=== PATIENT | female | born 1935 | race African-American/Black ===

== ENCOUNTER 2017-01-31 00:09 | Inpatient (IN) | payer OTHER ==
[~2017-01-31] VITALS: Ht 162.6 cm; Wt 89.8 kg
[2017-01-31] MEDS ORDERED: AZITHROMYCIN 500 MG in DEXT 5% WATER 250 ML IV ONE (00:45)
[2017-01-31] MEDS ORDERED: CEFTRIAXONE 2 G PREMIX 50 ML IV ONE (00:45)
[2017-01-31 00:56] LABS: EOSINOPHILS % 0.1 % (0.0-5.0); HEMATOCRIT. 21.2 % (36.0-48.0); LYMPHOCYTES % 6.3 % (20.0-50.0); MEAN CORPUSCULAR HEMOGLOBIN 28.9 pg (28.0-32.0); MEAN CORPUSCULAR HGB CONC 33.3 g/dL (31.0-37.0); MEAN CORPUSCULAR VOLUME 86.7 fL (81.0-99.0); MEAN PLATELET VOLUME 9.5 fl (7.4-10.4); MONOCYTES % 6.8 % (2.0-8.0); NEUTROPHILS % 86.8 % (40.0-76.0); PLATELET 195 x1000/uL (130-400); RED BLOOD CELL COUNT 2.44 mill/uL (4.2-5.4); RED CELL DISTRIBUTION WIDTH 13.7 % (11.6-14.6); WHITE BLOOD COUNT 10.8 x1000/uL (4.5-11.0)
[2017-01-31 01:03] LABS: INR 1.1; PROTHROMBIN TIME 11.4 sec
[2017-01-31 01:12] LABS: ALANINE AMINOTRANSFERASE 36 IU/L (13-61); ALBUMIN 3.4 g/dL (3.4-5.0); ANION GAP 16; CALCIUM 8.4 mg/dL (8.5-10.1); CARBON DIOXIDE 24 mEq/L (21-32); CHLORIDE 102 mEq/L (98-107); DIFFERENTIAL COMMENT 1; INDEX HEMOLYSI 1 (1-3); INDEX ICTERIC 1 (1-4); INDEX LIPEMIC 1 (1-3); LIPASE 73 IU/L (73-393); TROPONIN I 0.32 ng/mL (0.00-0.04); UREA NITROGEN BLOOD 32 mg/dL (7-21); eGFR 52 mL/min (>60)
[2017-01-31 01:25] LABS: NT PRO B-TYPE NATRIURETIC PEP 24680 pg/mL (5-125)
[2017-01-31] MEDS ORDERED: DEXTROSE 50% WATER 50ML SYRINGE IV ONE ×4 (01:30→15:02)
[2017-01-31] MEDS ORDERED: FUROSEMIDE 40MG/4ML VIAL IVP ONE (05:15)
[2017-01-31] MEDS ORDERED: DIPHENHYDRAMINE 50MG/ML VIAL IV PRN (11:00)
[2017-01-31] MEDS ORDERED: MAGNESIUM/ALUMINUM HYDROXIDE/SIMETHICONE 30ML UDC PO PRN (11:00)
[2017-01-31] MEDS ORDERED: NITROGLYCERIN 0.4MG TABLET SL SL PRN (11:00)
[2017-01-31] MEDS ORDERED: IPRATROPIUM/ALBUTEROL 0.5-3(2.5)MG/3ML NEB INH PRN (11:00)
[2017-01-31] MEDS ORDERED: LORAZEPAM 2MG/ML CPJ IV PRN (11:00)
[2017-01-31] MEDS ORDERED: GUAIFENESIN 200MG/10ML SUGAR FREE UDC PO PRN (11:00)
[2017-01-31] MEDS ORDERED: MORPHINE SULFATE 2 MG/ML CPJ (NOT FOR IM USE) IV PRN (11:00)
[2017-01-31] MEDS ORDERED: NA PHOS,M-B/NA PHOS,DI-BA ENEMA 118ML PR PRN (11:00)
[2017-01-31] MEDS ORDERED: ZOLPIDEM TARTRATE 5MG TABLET PO PRN (11:00)
[2017-01-31] MEDS ORDERED: ONDANSETRON HCL 4MG/2ML VIAL IV PRN (11:00)
[2017-01-31] MEDS ORDERED: TRAMADOL 50MG TABLET PO PRN (11:00)
[2017-01-31] MEDS ORDERED: DEXTROSE 50% WATER 50ML SYRINGE IV PRN (11:00)
[2017-01-31 12:21] LABS: INDEX HEMOLYSI 1 (1-3)
[2017-01-31 12:36] LABS: VITAMIN B12 SERUM 431 pg/mL (211-911)
[2017-01-31 12:41] LABS: FOLIC ACID (FOLATE) SERUM > 20.00 ng/mL (>5.38)
[2017-01-31 13:00] VITALS: BP 159/89
[2017-01-31] MEDS: INSULIN LISPRO 100 UNITS/ML SUBCUT SCH ×3 (13:12→21:00)
[2017-01-31] MEDS ORDERED: HYDR25TA PO (13:45)
[2017-01-31] MEDS ORDERED: LOSA100T11 PO (13:45)
[2017-01-31] MEDS ORDERED: ASPI-867 PO (13:45)
[2017-01-31] MEDS ORDERED: LORA0.5T2 PO (13:45)
[2017-01-31] MEDS ORDERED: ATEN50TA PO (13:45)
[2017-01-31] MEDS ORDERED: QUET25TA PO (13:45)
[2017-01-31] MEDS ORDERED: ISOS60TA4 PO (13:45)
[2017-01-31] MEDS ORDERED: AMLO5TAB4 PO (13:45)
[2017-01-31] MEDS ORDERED: GLIP5TAB12 PO (13:45)
[2017-01-31] MEDS ORDERED: HYDR-4135 PO (13:45)
[2017-01-31] MEDS ORDERED: LOVA40TA73 PO (13:45)
[2017-01-31] MEDS ORDERED: POTASSIUM CHLORIDE 20MEQ TABLET SR PO NR ×2 (14:00→16:00)
[2017-01-31] MEDS: FUROSEMIDE 40MG/4ML VIAL IVP SCH (14:12)
[2017-01-31] MEDS: BLOOD SUGAR DIAGNOSTIC STRIP TEST SCH ×3 (14:43→21:00)
[2017-01-31] MEDS ORDERED: DEXTROSE 50% WATER 50ML SYRINGE IV NR (15:15)
[2017-01-31 16:00] VITALS: BP 193/77
[2017-01-31] MEDS: CLONIDINE 0.1MG TABLET PO PRN ×2 (16:16→22:53)
[2017-01-31 17:06] LABS: CREATINE KINASE MB FRACTION 4.6 ng/mL (0.5-3.6)
[2017-01-31 17:32] LABS: TROPONIN I 0.44 ng/mL (0.00-0.04)
[2017-01-31] MEDS ORDERED: DEXT 10% WATER 1,000 ML IV NR (18:15)
[2017-01-31] MEDS: LOSARTAN POTASSIUM 50 MG TABLET PO SCH (18:24)
[2017-01-31] MEDS: AMLODIPINE 2.5MG TABLET PO SCH (18:24)
[2017-01-31] MEDS ORDERED: LISINOPRIL 20MG TABLET PO SCH (21:00)
[2017-01-31] MEDS: PANTOPRAZOLE SODIUM 40 MG/VIAL IV SCH (21:11)
[2017-01-31] MEDS: SPIRONOLACTONE 25MG TABLET PO SCH (21:11)
[2017-01-31 22:15] VITALS: BP 136/63
[2017-01-31 22:42] VITALS: BP 161/68
[2017-01-31 23:30] VITALS: BP 158/65
[2017-02-01] VITALS (14 sets, daily range): BP systolic 145–193; BP diastolic 65–100
[2017-02-01] MEDS: FUROSEMIDE 40MG/4ML VIAL IVP SCH ×2 (04:24→08:39)
[2017-02-01] MEDS: BLOOD SUGAR DIAGNOSTIC STRIP TEST SCH ×3 (05:58→16:52)
[2017-02-01] MEDS: INSULIN LISPRO 100 UNITS/ML SUBCUT SCH ×3 (05:58→16:53)
[2017-02-01] MEDS: SPIRONOLACTONE 25MG TABLET PO SCH (08:38)
[2017-02-01] MEDS: PANTOPRAZOLE SODIUM 40 MG/VIAL IV SCH (08:39)
[2017-02-01] MEDS: LOSARTAN POTASSIUM 50 MG TABLET PO SCH ×2 (08:39→16:59)
[2017-02-01] MEDS: AMLODIPINE 2.5MG TABLET PO SCH ×2 (08:54→17:00)
[2017-02-01 09:30] LABS: MAGNESIUM 2.5 mg/dL (1.8-2.4); THYROID STIMULATING HORMONE 1.3 uIU/mL (0.36-3.74); TROPONIN I 0.39 ng/mL (0.00-0.04)
[2017-02-01] MEDS: CLONIDINE 0.1MG TABLET PO PRN (09:57)
[2017-02-01] MEDS ORDERED: NITROGLYCERIN 0.4MG/HR PATCH TOP SCH (10:00)
[2017-02-01 10:20] LABS: BASOPHILS % 0.5 % (0.0-2.0); EOSINOPHILS % 6.1 % (0.0-5.0); HEMATOCRIT. 25.6 % (36.0-48.0); LYMPHOCYTES % 18.8 % (20.0-50.0); MEAN CORPUSCULAR HEMOGLOBIN 28.9 pg (28.0-32.0); MEAN CORPUSCULAR VOLUME 87.5 fL (81.0-99.0); MEAN PLATELET VOLUME 10.3 fl (7.4-10.4); NEUTROPHILS % 63.6 % (40.0-76.0); PLATELET 203 x1000/uL (130-400); RED BLOOD CELL COUNT 2.92 mill/uL (4.2-5.4)
[2017-02-01 10:24] LABS: HEMOGLOBIN. 8.4 g/dL (12.0-16.0)
[2017-02-01 10:31] LABS: ALANINE AMINOTRANSFERASE 32 IU/L (13-61); ALBUMIN 2.8 g/dL (3.4-5.0); ANION GAP 13; CALCIUM 8.6 mg/dL (8.5-10.1); CARBON DIOXIDE 27 mEq/L (21-32); CHLORIDE 103 mEq/L (98-107); INDEX HEMOLYSI 1 (1-3); INDEX ICTERIC 1 (1-4); INDEX LIPEMIC 1 (1-3); UREA NITROGEN BLOOD 29 mg/dL (7-21); eGFR 44 mL/min (>60)
== END 2017-02-01 20:10 | disposition short-term general hospital (02) | DRG 280 ==
LOC: ER 00:16 → 8WST 03:31
PROVIDERS: ADMIT Internal Medicine; ATTEND Internal Medicine
PROC: 30233N1 Transfusion of Nonautologous Red Blood Cells into Peripheral Vein, Percutaneous Approach (ICD-10-PCS; principal; 2017-01-31)
DX: I21.4 Non-ST elevation (NSTEMI) myocardial infarction (principal); I50.43 Acute on chronic combined systolic (congestive) and diastolic (congestive) heart failure; G92 Toxic encephalopathy; J18.9 Pneumonia, unspecified organism; D64.9 Anemia, unspecified; E11.649 Type 2 diabetes mellitus with hypoglycemia without coma; E78.00 Pure hypercholesterolemia, unspecified; E87.6 Hypokalemia; R74.0 Nonspecific elevation of levels of transaminase and lactic acid dehydrogenase [LDH]; E78.5 Hyperlipidemia, unspecified; T38.3X5A Adverse effect of insulin and oral hypoglycemic [antidiabetic] drugs, initial encounter; F03.90 Unspecified dementia, unspecified severity, without behavioral disturbance, psychotic disturbance, mood disturbance, and anxiety; I11.0 Hypertensive heart disease with heart failure; Z82.49 Family history of ischemic heart disease and other diseases of the circulatory system; Z86.73 Personal history of transient ischemic attack (TIA), and cerebral infarction without residual deficits; Z87.891 Personal history of nicotine dependence; Y92.89 Other specified places as the place of occurrence of the external cause
CPT/HCPCS: 36415; 70450; 71010; 80053; 80061; 82270; 82550; 82553; 82607; 82746; 82962; 83036; 83540; 83550; 83605; 83690; 83735; 83880; 84443; 84484; 85025; 85379; 85610; 85730; 86850; 86900; 86920; 87040; 93005; 93306; 93970; 96365; 96367; 96375; 99285; C9113; J0456; J0696; J1200; J1940; J2060; J7050; J7060; P9016

== ENCOUNTER 2018-03-28 21:16 | Emergency (ER) | payer OTHER ==
[~2018-03-28] VITALS: Ht 162.6 cm; Wt 62.0 kg
[~2018-03-28 21:16] MED LIST: AMLO5TAB4 PO; ASPI-867 PO; ATEN50TA PO; GLIP5TAB12 PO; HYDR-4135 PO; HYDR25TA PO; ISOS60TA4 PO; LORA0.5T2 PO; LOSA100T3 PO; LOVA40TA73 PO; QUET25TA PO
[2018-03-28] MEDS ORDERED: SODIUM CHLORIDE 0.9% 1,000 ML IV ONE (22:12)
[2018-03-28] MEDS ORDERED: LACTULOSE 20G/30ML UDC PO ONE (22:45)
[2018-03-28] MEDS ORDERED: MAGNESIUM CITRATE 300ML SOLUTION PO ONE (22:45)
[2018-03-28] MEDS ORDERED: MINERAL OIL 30ML BOTTLE PO ONE (22:45)
[2018-03-28 23:24] LABS: BASOPHILS % 0.2 % (0.0-2.0); CHLORIDE 107 mEq/L (98-107); EOSINOPHILS % 0.4 % (0.0-5.0); HEMATOCRIT. 29.9 % (36.0-48.0); HEMOGLOBIN. 9.9 g/dL (12.0-16.0); LYMPHOCYTES % 12.6 % (20.0-50.0); MEAN CORPUSCULAR VOLUME 91.1 fL (81.0-99.0); MEAN PLATELET VOLUME 10.2 fl (7.4-10.4); MONOCYTES % 5.2 % (2.0-8.0); NEUTROPHILS % 81.6 % (40.0-76.0); PLATELET 194 x1000/uL (130-400); RED BLOOD CELL COUNT 3.28 mill/uL (4.2-5.4); RED CELL DISTRIBUTION WIDTH 13.6 % (11.6-14.6)
[2018-03-29 02:23] VITALS: BP 128/53
== END 2018-03-29 02:23 | disposition short-term general hospital (02) ==
LOC: ER 21:16
DX: I44.1 Atrioventricular block, second degree (principal); E11.65 Type 2 diabetes mellitus with hyperglycemia; F03.90 Unspecified dementia, unspecified severity, without behavioral disturbance, psychotic disturbance, mood disturbance, and anxiety; Z79.82 Long term (current) use of aspirin
CPT/HCPCS: 36415; 80053; 82962; 85025; 93005; 96360; 96361; 99291; J7030